=== PATIENT | female | born 1945 | race Caucasian/White ===

== ENCOUNTER → 2018-03-25 | Outpatient (CLI) | payer OTHER | LOC: FIMAGING 09:10 | PROVIDERS: ATTEND Internal Medicine | DX: Z13.820 Encounter for screening for osteoporosis (principal); M81.0 Age-related osteoporosis without current pathological fracture; Z78.0 Asymptomatic menopausal state ==

== ENCOUNTER 2018-04-08 13:03 | Emergency (ER) | payer OTHER ==
[2018-04-08] MEDS ORDERED: PROPARACAINE 0.5% 15 ML OPHT DROP OP ONE (13:30)
[2018-04-08] MEDS ORDERED: FLUORESCEIN SODIUM 1 MG STRIP OP ONE (13:35)
[2018-04-08] MEDS ORDERED: PROPARACAINE 0.5% 15 ML OPHT DROP ONE (13:42)
--- NOTE | 2018-04-08 14:18 | EDPHY ---
H & P Stated Complaint: L eye pain Time Seen by Provider: 04/08/18 13:30 HPI/ROS: Chief Complaint: Eye pain HPI: 72-year-old woman's began having left eye pain and irritation last night. She has seen urgent care this morning and diagnosed with foreign body. She was sent home with an eye patch but no analgesia. Patient states the pain returned after the medicine she was given at the merchandise team manager wore off. No vision changes. Has had some increased tearing. She does not wear contact lenses. She is scheduled to have eye surgery in about [address] Reeves. ROS: 10 systems were reviewed and were negative except those elements noted in the HPI. Social History: No smoking, no alcohol, no recreational drug use Family History: non-contributory Physical Exam: General: Awake, alert, no acute distress Eye Exam Visual Acuity: Intact OU EOM: Intact OU Visual Howard: Intact OU Pupil: Equal, round and reactive to light and accomodation OU External: Lids, lashes and margins normal OU Slit Lamp; is moderate conjunctival injection with limbic sparing. Iris normal, Cornea normal, Anterior chambers clear without cells or flare, no hyphema, normal angles Fluorosceine exam: There are oblique abrasions in the 7 8:00 position consistent with corneal abrasion. No significant ulceration. Tonometry: 17 in the left eye - Personal History Current Tetanus Diphtheria and Acellular Pertussis (TDAP): Yes - Medical/Surgical History Hx Asthma: No Hx Chronic Respiratory Disease: No Hx Diabetes: No Hx Cardiac Disease: No Hx Renal Disease: No Hx Cirrhosis: No Hx Alcoholism: No Hx HIV/AIDS: No Hx Splenectomy or Spleen Trauma: No Other PMH: R eye cataract surg, osteoporosis, [place] [place] - Social History Smoking Status: Never smoked Constitutional: Initial Vital Signs Temperature (C) 36.9 C 04/08/18 13:12 Heart Rate 74 04/08/18 13:12 Respiratory Rate 16 04/08/18 13:12 Blood Pressure 159/86 H 04/08/18 13:12 O2 Sat (%) 95 04/08/18 13:12 Allergies/Adverse Reactions: tetracycline Allergy (Verified 04/08/18 13:16) Medical Decision Making ED Course/Re-evaluation: 72-year-old woman with corneal abrasion. Normal pressures. Will discharge with a dilute solution proparacaine, 0.05% for pain. Alternate acetaminophen with ibuprofen. Will also start her on ciprofloxacin ophthalmic ointment 3 times a day. She is allergic to erythromycin. Follow up with her merchandise team manager in 3 days as scheduled. Departure - Departure Disposition: Home, Routine, Self-Care Clinical Impression: Corneal abrasion Condition: Good Instructions: Corneal Abrasion (ED) Additional Instructions: You may use the proparacaine drops 1-2 drops every 30 min while awake for the next 2 days for pain or discomfort. Alternate acetaminophen with ibuprofen every 4 hr as needed for pain or discomfort. Apply the ciprofloxacin eye ointment every 3 hr the next 2 days. Follow up with her merchandise team manager on Saturday as scheduled. Return to the emergency department for worsening pain, worsening discharge from the eye, worsening vision, or any other concerns. Referrals: Lucille Godoy MD [Primary Care Provider] - As per Instructions Yoan Reeves MD [Medical Doctor] - As per Instructions
[2018-04-08] MEDS ORDERED: CIPROFLOXACIN 0.3% DROPS PREPACK OPHT.BTL TAKEHOME ONE (14:25)
[2018-04-08 14:51] VITALS: BP 135/74
[2018-04-08] MEDS ORDERED: CIPROFLOXACIN 3.5 GM OPHT.OINT LEFTEYE SCH (16:00)
== END 2018-04-08 14:51 | disposition home or self-care (01) ==
DX: H57.12 Ocular pain, left eye (principal); S05.02XD Injury of conjunctiva and corneal abrasion without foreign body, left eye, subsequent encounter

== ENCOUNTER → 2018-05-06 | Outpatient (CLI) | payer OTHER | LOC: FIMAGING 08:37 | PROVIDERS: ATTEND Internal Medicine | DX: Z12.31 Encounter for screening mammogram for malignant neoplasm of breast (principal) ==